=== PATIENT | female | born 1995 | race Caucasian/White ===

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

== ENCOUNTER 2019-11-29 18:10 | Emergency (ER) | payer MEDICAID ==
[~2019-11-29] VITALS: Ht 160 cm; Wt 45.8 kg
[2019-11-29 18:13] VITALS: BP 126/92
--- NOTE | 2019-11-29 19:28 | NUR ---
NO ANSWER WHEN CALLED FOR ROOM
--- NOTE | 2019-11-29 19:38 | NUR ---
NO ANSWER WHEN CALLED FOR ROOM, NEXT PT ROOMED
--- NOTE | 2019-11-29 20:08 | NUR ---
NO ANSWER WHEN CALLED FOR ROOM
== END 2019-11-29 21:17 | disposition left against medical advice (07) ==
LOC: ED 18:20
DX: M25.662 Stiffness of left knee, not elsewhere classified (principal); Z53.21 Procedure and treatment not carried out due to patient leaving prior to being seen by health care provider

== ENCOUNTER 2019-12-03 06:36 | Emergency (ER) | payer MEDICAID ==
[~2019-12-03] VITALS: Ht 157.5 cm; Wt 47.4 kg
[2019-12-03 06:42] VITALS: BP 120/83
== END 2019-12-03 09:03 | disposition home or self-care (01) ==
LOC: ED 08:05
DX: S83.92XA Sprain of unspecified site of left knee, initial encounter (principal); X58.XXXA Exposure to other specified factors, initial encounter; Y93.89 Activity, other specified; Y92.098 Other place in other non-institutional residence as the place of occurrence of the external cause; Y99.8 Other external cause status
CPT/HCPCS: 29505; 99283

== ENCOUNTER 2019-12-07 01:45 | Emergency (ER) | payer MEDICAID ==
[~2019-12-07] VITALS: Ht 157.5 cm; Wt 48.0 kg
[2019-12-07 01:54] VITALS: BP 116/75
--- NOTE | 2019-12-07 02:08 | NUR ---
first contact with pt. Pt ambulated back to room with a smooth and steady gait, sitting up in chair in room, boyfriend next to pt. Pt states she came in for "dental pain in the back right side from a filling falling out". Pt denies current dental appt. States pain is "really bad". Noticable decay on teeth. Pt gross neuro intact, jaw movement appropriate, denies swallowing intact, no dizziness or vision changes. No noticable right sided swelling. WCTM.
--- NOTE | 2019-12-07 02:22 | NUR ---
Patient given discharge instructions and they have confirmed that they understand the instructions. Patient ambulatory with steady gait. Pt given dental referral list, pt denies additional questions at this time. Pt left with all belongings. NAD, VSS
== END 2019-12-07 02:24 | disposition home or self-care (01) ==
LOC: ED 02:00
DX: K08.89 Other specified disorders of teeth and supporting structures (principal); F17.210 Nicotine dependence, cigarettes, uncomplicated
CPT/HCPCS: 99283

== ENCOUNTER 2020-03-03 12:04 | Emergency (ER) | payer MEDICAID ==
[~2020-03-03] VITALS: Ht 157.5 cm; Wt 49.3 kg
[2020-03-03 12:15] VITALS: BP 115/83
--- NOTE | 2020-03-03 12:27 | NUR ---
awaiting to be seen by provider for right lower dental pain
--- NOTE | 2020-03-03 13:47 | NUR ---
BREAK RN: Patient/Caregiver given discharge instructions and they have confirmed that they understand the instructions. Patient ambulatory with steady gait.
== END 2020-03-03 13:48 | disposition home or self-care (01) ==
LOC: ED 12:39
DX: K02.9 Dental caries, unspecified (principal); K08.89 Other specified disorders of teeth and supporting structures; F17.200 Nicotine dependence, unspecified, uncomplicated
CPT/HCPCS: 99283

== ENCOUNTER 2020-07-18 12:30 | Emergency (ER) | payer MEDICAID ==
[~2020-07-18] VITALS: Ht 157.5 cm; Wt 48.0 kg
--- NOTE | 2020-07-18 12:44 | NUR ---
PATIENT BIB [facility] WITH CHIEF C/O BRIGHT RED BLOOD AFTER BOWEL MOVEMENT. PATIENT REPORTS CLOTS IN THE TOILET AND DIFFUSE ABD PAIN THAT STARTED AROUND 1000 THIS MORNING. PATIENT DENIES N/V/D, DENIES FEVER. EMS ALSO REPORTS PATIENT IS ALLERGIC TO "BUG VENOM," AND NOTICED MULTIPLE LITTLE BITES ALL OVER HER ARMS RECENTLY. PATIENT LIVES IN MOTEL ROOM WITH PARENTS AND PARENTS DO NOT HAVE THE SAME LUTHER. PER EMS VITALS STABLE EN ROUTE. PATIENT IS CRYING IN GURNEY, MULTIPLE SCABBED OVER LUTHER ON ARMS, CONNECTED TO MONITOR, CALL LIGHT WITHIN REACH.
[2020-07-18] MEDS ORDERED: SODIUM CHLORIDE FLUSH 10ML SYR IVF ONE (13:30)
--- NOTE | 2020-07-18 13:37 | NUR ---
PATIENT AMBULATED TO BATHROOM WITH STEADY GAIT FOR URINE SAMPLE.
[2020-07-18 13:40] LABS: BASOPHILS % (AUTO) 1 % (0-1); EOSINOPHILS % (AUTO) 4 % (1-7); LYMPHOCYTES % (AUTO) 39 % (22-44); MEAN CORPUSCULAR HEMOGLOBIN 30.7 pg (27.0-34.8); MEAN CORPUSCULAR HGB CONC 34.3 g/dL (32.4-35.8); MEAN PLATELET VOLUME 7.7 fL (7.4-10.4); MONOCYTES % (AUTO) 9 % (2-9); NEUTROPHILS % (AUTO) 48 % (42-75); PLATELET COUNT 255 x10^3/uL (130-400); RED BLOOD COUNT 4.18 x10^6/uL (3.82-5.3); RED CELL DISTRIBUTION WIDTH 13.9 % (9.6-15.2)
[2020-07-18 13:44] LABS: MD NO
--- NOTE | 2020-07-18 13:46 | NUR ---
URINE SAMPLE COLLECTED AND WALKED TO LAB.
[2020-07-18 13:52] LABS: ALANINE AMINOTRANSFERASE 222 U/L (12-78); ALBUMIN 3.5 g/dL (3.4-5.0); ANION GAP 7 mmol/L (5-15); CALCIUM 8.9 mg/dL (8.5-10.1); CHLORIDE 109 mmol/L (98-107); CREATININE 0.56 mg/dL (0.55-1.02)
[2020-07-18 13:56] LABS: ALKALINE PHOSPHATASE 102 U/L (45-117); BILIRUBIN,TOTAL 0.2 mg/dL (0.2-1.0); TOTAL PROTEIN 6.7 g/dL (6.4-8.2)
[2020-07-18 14:09] LABS: MICROSCOPIC INDICATED
--- NOTE | 2020-07-18 15:09 | NUR ---
PATIENT RESTING IN [facility], ON PHONE, POLLY LARA, CALL LIGHT WITHIN REACH. WAITING FOR ERMD TO SEE.
[2020-07-18] MEDS ORDERED: SODIUM CHLORIDE 0.9% 1,000ML IVBOLUS ONE (15:30)
[2020-07-18] MEDS ORDERED: HYDROmorphone 2 MG/ML, 1ML IVPush PRN (15:30)
[2020-07-18] MEDS ORDERED: ONDANSETRON 2MG/ML, 2ML IVPush ONE (15:30)
[2020-07-18] MEDS ORDERED: ONDANSETRON 2MG/ML, 2ML ONE (15:36)
[2020-07-18] MEDS ORDERED: HYDROmorphone 1 MG/ML, 1ML INJ ONE (15:36)
--- NOTE | 2020-07-18 15:51 | NUR ---
PATIENT MEDICATED PER [facility], RESTING IN RNEY WATCHING TV, VSS, CALL LIGHT WITHIN REACH. WAITING FOR ULTRASOUND.
[2020-07-18 16:54] VITALS: BP 110/78
--- NOTE | 2020-07-18 16:57 | NUR ---
ER PROVIDER AT BEDSIDE TO DISCUSS POC AND DISCHARGE DISPO.
--- NOTE | 2020-07-18 17:14 | NUR ---
IV removed with tip intact. Patient given discharge instructions and prescriptions and they have confirmed that they understand the instructions. Taxi voucher provided to patient. Patient stable and ambulatory with steady gait from ED to taxi cab with all belongings.
== END 2020-07-18 17:15 | disposition home or self-care (01) ==
LOC: ED 13:14
DX: K64.4 Residual hemorrhoidal skin tags (principal); K92.1 Melena; R94.5 Abnormal results of liver function studies; R10.84 Generalized abdominal pain
CPT/HCPCS: 36415; 76700; 80053; 80074; 81001; 83690; 84703; 85025; 96361; 96374; 96375; 99284; J1170; J2405; J7030

== ENCOUNTER 2020-12-23 00:49 | Emergency (ER) | payer MEDICAID ==
[~2020-12-23] VITALS: Ht 157.5 cm; Wt 45.0 kg
[2020-12-23 00:52] VITALS: BP 129/81
[2020-12-23] MEDS ORDERED: KETOROLAC 30 MG/1 ML IM ONE (02:30)
[2020-12-23] MEDS ORDERED: KETOROLAC 30 MG/1 ML ONE (03:06)
--- NOTE | 2020-12-23 03:12 | NUR ---
TASK RN: PT MEDICATED PER EMAR FOR ANKLE PAIN
== END 2020-12-23 03:56 | disposition home or self-care (01) ==
LOC: ED 03:49
DX: S90.02XA Contusion of left ankle, initial encounter (principal); S90.32XA Contusion of left foot, initial encounter; Z72.9 Problem related to lifestyle, unspecified; F17.210 Nicotine dependence, cigarettes, uncomplicated; W20.8XXA Other cause of strike by thrown, projected or falling object, initial encounter; Y93.89 Activity, other specified; Y92.89 Other specified places as the place of occurrence of the external cause; Y99.8 Other external cause status
CPT/HCPCS: 73610; 73630; 96372; 99284; J1885

== ENCOUNTER 2021-01-18 09:45 | Emergency (ER) | payer MEDICAID ==
[~2021-01-18] VITALS: Ht 157.5 cm; Wt 54.0 kg
[2021-01-18 10:00] VITALS: BP 152/117
== END 2021-01-18 10:42 | disposition home or self-care (01) ==
LOC: ED 10:23
DX: F32.9 Major depressive disorder, single episode, unspecified (principal); F11.10 Opioid abuse, uncomplicated
CPT/HCPCS: 99281

== ENCOUNTER 2021-03-02 12:05 | Emergency (ER) | payer MEDICAID ==
[~2021-03-02] VITALS: Ht 157.5 cm; Wt 53.6 kg
[2021-03-02 12:12] VITALS: BP 131/74
== END 2021-03-02 13:01 | disposition home or self-care (01) ==
LOC: ED 12:24
DX: J06.9 Acute upper respiratory infection, unspecified (principal); Z20.822 Contact with and (suspected) exposure to COVID-19; F17.210 Nicotine dependence, cigarettes, uncomplicated
CPT/HCPCS: 99283; U0003; U0005